=== PATIENT | male | born 1990 ===

== ENCOUNTER 2020-08-28 11:52 | Emergency (ER) | payer SELFPAY ==
[~2020-08-28] VITALS: Ht 170.2 cm; Wt 64.0 kg
[2020-08-28 11:58] VITALS: BP 114/67
--- NOTE | 2020-08-28 12:19 | NUR ---
Possibly an apple he swallowed.
--- NOTE | 2020-08-28 13:38 | NUR ---
interpreted computer at bedside. laura tristan at bedside with fuel cell test engineer evalauting pt.
[2020-08-28] MEDS ORDERED: IBUP-1984 PO (14:16)
== END 2020-08-28 14:34 | disposition home or self-care (01) ==
LOC: ER 11:53
DX: K22.8 Other specified diseases of esophagus (principal); Z79.899 Other long term (current) drug therapy
CPT/HCPCS: 71045; 99283